=== PATIENT | male | born 1980 | race African-American/Black ===

== ENCOUNTER 2020-08-10 01:13 | Emergency (ER) | payer SELFPAY ==
[~2020-08-10] VITALS: Ht 193 cm; Wt 77.1 kg
--- NOTE | 2020-08-10 01:26 | NUR ---
ED Nurse Note: CARLOS Ulloa officer herve# [id number]
--- NOTE | 2020-08-10 01:59 | NUR ---
ED Nurse Note: Pt c/o RLQ abdominal pain x2 days, reports no BM x5 days. Pt is AAO x4 and ambulated into ED with no assistance. [facility] Officers are with pt. IV started, blood sent to lab, advised pt I need urine sample.
[2020-08-10 02:08] VITALS: BP 157/100
[2020-08-10] MEDS ORDERED: ONDANSETRON ODT4 MG BC (02:08)
[2020-08-10] MEDS ORDERED: COLACE100 MG ORAL (02:08)
--- NOTE | 2020-08-10 02:09 | Emergency Room Report ---
History of Present Illness General Chief Complaint: Abdominal Pain Source: Patient Present Illness HPI 40-year-old male with past medical history of bilateral inguinal hernias with left inguinal hernia s/p mesh repair brought in by PD for nursing home check. Patient was getting arrested and stated that he started to have worsening right hernia pain. [place] and has been constipated. Last bowel movement was 5 days ago. Last oral intake was today. Denies fever, chills, headache, photophobia, neck pain, back pain, hematemesis, melena, hematochezia, diarrhea, cough, shortness of breath, testicular pain, scrotal lesions, dysuria, hematuria or any other symptoms The patient's symptoms were acute on chronic onset, severity was moderate, duration since 5 days. Quality: Aching Past medical history: Inguinal hernias Past surgical history: Left inguinal hernia repair Smoking: Positive Alcohol use: Denies Drug use: Denies Review of systems: CONST: No fevers or chills, No night sweats PULMONARY: No productive cough, No shortness of breath CARDIAC: No chest pain, No palpitations GI: No vomiting, No diarrhea , No melena_or_BRBPR ; positive constipation : No dysuria, No hematuria, No discharge NEURO: No new_focal_weakness_or_numbness, No confusion, No vision changes 14 point Review of Systems is otherwise negative except per HPI Physical Exam: GENERAL: Awake_alert_ nontoxic, no acute distress Spo2 100% on RA -normal EYES: Extraocular muscles are intact. Conjunctivae clear. Lids without swelling ENT: External nose and ear normal_in_appearance. Oropharynx clear. Head_atraumatic, Moist_oral_mucosa NECK: No JVD. No meningismus. No thyromegaly. Supple. Trachea midline RESP: Normal respiratory effort. Symmetric rise. No stridor. Clear_to_auscultation_No_rales_No_wheezes CARDIAC: Regular rate and regular rhytm. No_significant pedal edema. ABDOMEN: Soft. Nondistended. Nontender_No_rebound_or_guarding. : Easily reducible right inguinal hernia. No cellulitis. No mass. penis without rash, testicles descended without tenderness or swelling, testicles with normal lie. Chaperoned with nurse Shagufta at bedside MSK: Normal muscle tone, without rigidity. Extremities without asymmetric deformity or swelling. SKIN: Warm and dry. No visible cyanosis or pallor NEUROLOGIC: Alert, oriented x3. Motor_and_sensation_grossly_intact. No truncal ataxia. Gait_normal Psych: Normal mood and affect, normal judgment and insight - COORDINATION OF CARE Case was discussed with: Patient Any labs and imaging that were ordered were interpreted as part of the medical decision making: Medical Decision Making/Plan: Differential diagnosis includes incarcerated hernia, SBO, ileus, appendicitis, diverticulitis, testicular torsion, kidney stone, small bowel obstruction, volvulus, AAA, pancreatitis, among others. Patient is well appearing with stable vital signs. Abdominal exam is non peritoneal with no guarding or rebound. He is noted to have an easily reducible right inguinal hernia. No signs of strangulation or incarceration Labs were drawn and the results were reassuring. CT scan shows high-grade constipation but no evidence for small bowel obstruction, ileus, or blockage. There is no evidence of strangulation, incarceration of right inguinal hernia, and it contains only fat. The patient has no significant risk factors for AAA (abdominal aortic aneurysm) such as age over 50 with history of hypertension, connective tissue disorder, or 1st degree relative with AAA. In addition, the patient has normal dorsalis pedis pulses, no radiation of pain to the back, and no pulsatile mass felt on exam. The patients profile was overall low risk for AAA and definitive workup was not pursued. The patients presentation is not consistent with testicular torsion. The patient denies any testicular pain, pain was not sudden onset or associated with vomiting. Testicular exam is normal without any evidence of torsion. The patient denies any bloody stool and has no pain out of proportion to exam, and no significant risk factors for mesenteric ischemia such as atrial fibrillation or severe PAD/PVD (peripheral arterial / vascular disease), thus definitive workup to rule out mesenteric ischemia was not pursued. Patient is medically cleared for nursing home. Recommend stool softeners and follow-up with PMD for referral to general surgery for elective repair of his easily reducible inguinal hernia. Patient is able to tolerate p.o. upon discharge. Also recommended referral to GI for chronic constipation Pertinent results reviewed with the patient. I educated the patient on the current treatment plan including the risks, benefits, and alternatives. I also d iscussed the extent and limitations of the current evaluation. The patient expressed understanding and agreement with plan. I recommended PMD follow-up within 1-2 days for repeat abdominal exam. Also advised that the patient return to the Emergency Department as soon as possible if they experience any new, persistent, or worsening symptoms. 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 COVID-19 Screening: Negative COVID-19 COVID-19 Testing Source: unknown Nursing Documentation-[facility] Past Medical History: No History, Except For Hx Hypertension: Yes Hx Diabetes: No - prediabetic Physical Exam Vital Signs Date Time Temp Pulse Resp B/P (MAP) Pulse Ox O2 Delivery O2 Flow Rate FiO2 08/10/20 01:16 97.7 87 20 157/100 (119) 100 Room Air Sp02 EP Interpretation: reviewed, normal Medical Decision Making Diagnostic Impression: Primary Impression: Right inguinal hernia Additional Impressions: Constipation Nausea and vomiting EKG Diagnostic Results Troponin ordered: No Rhythm Strip Diag. Results Rhythm Strip Time: 02:07 EP Interpretation: yes Rate: 87 Rhythm: NSR, no PVC's, no ectopy CT/MRI/US Diagnostic Results CT/MRI/US Diagnostic Results : Impression CT Abdomen and Pelvis Without Intravenous Contrast FINDINGS: Lung bases: Unremarkable. No mass. No consolidation. ABDOMEN: Liver: Unremarkable. Gallbladder and bile ducts: Unremarkable. No calcified stones. No ductal dilation. Pancreas: Unremarkable. No ductal dilation. Spleen: Unremarkable. No splenomegaly. Adrenals: Unremarkable. No mass. Kidneys and ureters: No hydronephrosis or nephrolithiasis. Stomach and bowel: Severe fecal retention, consistent with severe constipation. Follow-up patient symptoms following relief of constipation. The large stool burden makes evaluation of the adjacent abdominal viscera mildly limited. No small bowel obstruction however, there are numerous fecalized loops of small bowel, likely a function of the high-grade constipation. No mucosal thickening. PELVIS: Appendix: Normal appendix. Bladder: Unremarkable. No stones. Reproductive: Unremarkable as visualized. ABDOMEN and PELVIS: Intraperitoneal space: Unremarkable. No free air. No significant fluid collection. Bones/joints: No acute fracture. No dislocation. Soft tissues: Small fat-containing right inguinal hernia. Vasculature: Unremarkable. No abdominal aortic aneurysm. Lymph nodes: Unremarkable. No enlarged lymph nodes. IMPRESSION: 1. Severe fecal retention, consistent with severe constipation. Follow- up patient symptoms following relief of constipation. The large stool burden makes evaluation of the adjacent abdominal viscera mildly limited. 2. No small bowel obstruction however, there are numerous fecalized loops of small bowel, likely a function of the high-grade constipation. 3. Normal appendix. 4. Small fat-containing right inguinal hernia. 5. No hydronephrosis or nephrolithiasis. Dictated By: Prabhakar Meyers M.D. Reevaluation Time: : Last Vital Signs Date Time Temp Pulse Resp B/P (MAP) Pulse Ox O2 Delivery O2 Flow Rate FiO2 08/10/20 01:16 97.7 87 20 157/100 (119) 100 Room Air Status: improved Disposition: LAW ENFORCEMENT IN CUST Admit Decision Time: 04:30 Condition: Stable Scripts Cephalexin* (KEFLEX*) 500 Mg Capsule 500 MG ORAL EVERY 12 HOURS, #14 CAP 0 Refills Prov: Rimma Roca.O. 08/10/20 Polyethylene Glycol 3350* (MIRALAX*) 17 Gm Powd.pack 17 GM ORAL DAILY for 7 Days, #7 PACKET Prov: Rimma Roca.O. 08/10/20 Magnesium Hydroxide (Dulcolax) 400 Mg/5 Ml Oral.susp 400 MG PO DAILY for CONSTIPATION for 10 Days, #100 ML Prov: Rimma Roca.O. 08/10/20 Ondansetron Odt* (ZOFRAN ODT*) 4 Mg Tab.rapdis 4 MG BC EVERY 8 HOURS, #10 TAB 0 Refills Prov: Rimma Roca.O. 08/10/20 Docusate Sodium* (COLACE*) 100 Mg Capsule 100 MG ORAL DAILY for 10 Days, #30 CAP Prov: Rimma Rcoa.O. 08/10/20 Referrals: NOT CHOSEN IPA/,REFERRING (PCP) Patient Instructions: Constipation, Adult, [id number], Hernia, Adult, Mept-to-Vcwa Additional Instructions: Patient is medically clear for nursing home. Instructions for patient/permit review assistant: Follow up with your physician in 1-2 days for referral for elective hernia rep air by GS[facility] and GI for chronic constipation. Eat fiber. Wear hernia belt. Avoid heavy lifting. Drink plenty of fluids. Follow-up with your doctor sooner if your condition requires a more timely clinical reevaluation. Return to the emergency department immediately if you feel that your condition is worsening or if you have any new or concerning symptoms. Review your discharge instructions and take any prescriptions given as instructed. [facility] PROVIDES FREE OR LOW-COST HEALTH SERVICES TO PEOPLE WHO CAN SHOW PROOF THAT THEY LIVE IN [facility]. TO FIND MORE CLINICS PARTNERED WITH THE [facility] TO PROVIDE SERVICE, PLEASE CALL . Rimma Roca D.O. Aug 10, 2020 02:09
[2020-08-10 02:19] LABS: BASOPHILS % (AUTO) 1.6 % (0.0-2.0); EOSINOPHILS % (AUTO) 4.8 % (0.0-3.0); HEMOGLOBIN 15.3 G/DL (14.2-18.0); LYMPHOCYTES % (AUTO) 31.3 % (20.0-45.0); MEAN CORPUSCULAR VOLUME 85 FL (80-99); MONOCYTES % (AUTO) 6.8 % (1.0-10.0); NEUTROPHILS % (AUTO) 55.5 % (45.0-75.0); PLATELET COUNT 357 K/UL (150-450); RED BLOOD COUNT 5.78 M/UL (4.70-6.10); RED CELL DISTRIBUTION WIDTH 12.9 % (11.6-14.8)
[2020-08-10 02:26] LABS: ANION GAP 3 mmol/L (5-15); BLOOD UREA NITROGEN 13 mg/dL (7-18); CALCIUM 8.9 MG/DL (8.5-10.1); CARBON DIOXIDE 33 MMOL/L (21-32); CHLORIDE 104 MMOL/L (98-107); CREATININE 0.9 MG/DL (0.55-1.30); POTASSIUM 4.3 MMOL/L (3.5-5.1); SODIUM 140 MMOL/L (136-145)
[2020-08-10 02:30] LABS: ALANINE AMINOTRANSFERASE 29 U/L (12-78); ALBUMIN 3.7 G/DL (3.4-5.0); ALBUMIN/GLOBULIN RATIO 1.1 (1.0-2.7); ALKALINE PHOSPHATASE 63 U/L (46-116); ASPARTATE AMINO TRANSFERASE 13 U/L (15-37); BILIRUBIN,TOTAL 0.3 MG/DL (0.2-1.0)
--- NOTE | 2020-08-10 02:30 | NUR ---
ED Nurse Note: Pt is resting. Officers at bedside, no new needs identified at this time.
--- NOTE | 2020-08-10 04:00 | NUR ---
ED Nurse Note: Pt back from CT, reminded pt I need urine. Pt advised it would be nice if he had water or juice. Advised pt he cannot have anything to drink at this time. Officers at bedside.
--- NOTE | 2020-08-10 04:19 | Diagnostic Imaging Report ---
EXAM: CT Abdomen and Pelvis Without Intravenous Contrast CLINICAL HISTORY: LUMP TECHNIQUE: Axial computed tomography images of the abdomen and pelvis without intravenous contrast. CTDI is 3.8 mGy and DLP is 210 mGy-cm. One or more of the following dose reduction techniques were used: automated exposure control, adjustment of the mA and/or kV according to patient size, use of iterative reconstruction technique. COMPARISON: No relevant prior studies available. FINDINGS: Lung bases: Unremarkable. No mass. No consolidation. ABDOMEN: Liver: Unremarkable. Gallbladder and bile ducts: Unremarkable. No calcified stones. No ductal dilation. Pancreas: Unremarkable. No ductal dilation. Spleen: Unremarkable. No splenomegaly. Adrenals: Unremarkable. No mass. Kidneys and ureters: No hydronephrosis or nephrolithiasis. Stomach and bowel: Severe fecal retention, consistent with severe constipation. Follow-up patient symptoms following relief of constipation. The large stool burden makes evaluation of the adjacent abdominal viscera mildly limited. No small bowel obstruction however, there are numerous fecalized loops of small bowel, likely a function of the high-grade constipation. No mucosal thickening. PELVIS: Appendix: Normal appendix. Bladder: Unremarkable. No stones. Reproductive: Unremarkable as visualized. ABDOMEN and PELVIS: Intraperitoneal space: Unremarkable. No free air. No significant fluid collection. Bones/joints: No acute fracture. No dislocation. Soft tissues: Small fat-containing right inguinal hernia. Vasculature: Unremarkable. No abdominal aortic aneurysm. Lymph nodes: Unremarkable. No enlarged lymph nodes. IMPRESSION: 1. Severe fecal retention, consistent with severe constipation. Follow- up patient symptoms following relief of constipation. The large stool burden makes evaluation of the adjacent abdominal viscera mildly limited. 2. No small bowel obstruction however, there are numerous fecalized loops of small bowel, likely a function of the high-grade constipation. 3. Normal appendix. 4. Small fat-containing right inguinal hernia. 5. No hydronephrosis or nephrolithiasis.
[2020-08-10] MEDS ORDERED: DULCOLAX400 MG/5 M PO (04:23)
[2020-08-10] MEDS ORDERED: MIRALAX17 G2 ORAL (04:23)
[2020-08-10] MEDS ORDERED: CEPHALEXIN500 MG ORAL (04:30)
[2020-08-10 04:31] LABS: APPEARANCE,URINE CLEAR; BILIRUBIN, URINE NEGATIVE (NEGATIVE); COLOR,URINE PALE YELLOW; GLUCOSE, URINE (UA) NEGATIVE (NEGATIVE); KETONES,URINE NEGATIVE (NEGATIVE); LEUKOCYTE ESTERASE ,URINE 1+ (NEGATIVE); NITRITE,URINE NEGATIVE (NEGATIVE); PH,URINE 6.5 (4.5-8.0); PROTEIN,URINE NEGATIVE (NEGATIVE); UROBILINOGEN,URINE NORMAL MG/DL (0.0-1.0)
--- NOTE | 2020-08-10 04:34 | NUR ---
ER DISCHARGE NOTE: Patient is cleared to be discharged per ER MD, pt is aaox4, on room air, with stable vital signs. pt was given d/c and prescription instructions, pt was able to verbalize understanding, pt id band and iv site removed without complications. pt is able to ambulate with steady gait. pt took all belongings. Pt discharged to police custody.
[2020-08-10 04:35] VITALS: BP 152/95
== END 2020-08-10 04:37 ==
LOC: EMR 01:31
DX: K40.90 Unilateral inguinal hernia, without obstruction or gangrene, not specified as recurrent (principal); K59.00 Constipation, unspecified; R11.2 Nausea with vomiting, unspecified; I10 Essential (primary) hypertension
CPT/HCPCS: 36415; 74176; 80053; 81003; 83690; 85025; 85610; 85730; 99284